=== PATIENT | male | born 2000 | race Caucasian/White ===

== ENCOUNTER → 2024-05-10 11:39 | Outpatient (REF) | payer OTHER, SELFPAY | LOC: RAD 11:39 | PROVIDERS: ATTENDING PHYSICIAN Podiatrist Primary Podiatric Medicine; FAMILY PHYSICIAN Pediatrics | DX: L03.032 Cellulitis of left toe (principal) | CPT/HCPCS: 73630 ==

== ENCOUNTER → 2024-09-01 14:00 | Outpatient (REF) | payer OTHER, SELFPAY | LOC: RAD 14:00 | PROVIDERS: ATTENDING PHYSICIAN Internal Medicine Hematology & Oncology; FAMILY PHYSICIAN Pediatrics | DX: R59.9 Enlarged lymph nodes, unspecified (principal); R50.9 Fever, unspecified | CPT/HCPCS: 70491; 71260; 74177; Q9967 ==